=== PATIENT | male | born 1990 | race Caucasian/White ===

== ENCOUNTER 2017-09-01 17:14 | Emergency (ER) | payer MEDICAID ==
[~2017-09-01] VITALS: Ht 188 cm; Wt 72.2 kg
[2017-09-01 17:15] VITALS: BP 132/82
== END 2017-09-01 18:20 | disposition home or self-care (01) ==
LOC: ED 18:14
DX: J01.00 Acute maxillary sinusitis, unspecified (principal); B97.89 Other viral agents as the cause of diseases classified elsewhere; F17.200 Nicotine dependence, unspecified, uncomplicated
CPT/HCPCS: 71020; 99284